=== PATIENT | female | born 1960 | race Caucasian/White ===

== ENCOUNTER → 2016-07-14 | Outpatient (CLI) | payer BC ==
[2016-07-14 08:44] LABS: BASOPHILS # (AUTO) 0.06 10*3/UL; BASOPHILS % (AUTO) 0.7 % (0-1); EOSINOPHILS # (AUTO) 0.39 10*3/UL; EOSINOPHILS % (AUTO) 4.3 % (0-8); HEMATOCRIT 43.2 % (37.0-47.0); HEMOGLOBIN 14.2 g/dL (12.0-16.0); LYMPHOCYTES # (AUTO) 0.99 10*3/uL; MEAN CORPUSCULAR HEMOGLOBIN 32.1 PG (27-31); MEAN CORPUSCULAR HGB CONC 32.9 g/dL (33-37); MEAN CORPUSCULAR VOLUME 97.7 FL (81-99); MEAN PLATELET VOLUME 8.5 FL (7.4-12.2); MONOCYTES # (AUTO) 0.45 10*3/UL (0.3-0.8); MONOCYTES % (AUTO) 4.9 % (5-15); NEUTROPHILS # (AUTO) 7.24 10*3/UL; NEUTROPHILS % (AUTO) 79.1 % (50-80); RED BLOOD COUNT 4.42 10^6/uL (4.20-5.40)
[2016-07-14 09:13] LABS: PLATELET MORPHOLOGY COMMENT NORMAL MORPHOLOGY (NORM); RBC MORPHOLOGY COMMENT NORMAL MORPHOLOGY (NORM); WBC MORPHOLOGY COMMENT NORMAL MORPHOLOGY (NORM)
[2016-07-14 09:42] LABS: CALCIUM 9.9 mg/dL (8.7-10.7); CHOL/HDL RATIO 3.63 RATIO (0-4.0); LDL CHOLESTEROL,CALCULATED 92.2 mg/dL
== END ==
LOC: LAB 08:23
PROVIDERS: ATTEND Internal Medicine
DX: E03.9 Hypothyroidism, unspecified (principal); E78.5 Hyperlipidemia, unspecified; F31.9 Bipolar disorder, unspecified
CPT/HCPCS: 36415; 80053; 80061; 80178; 84443; 85025

== ENCOUNTER → 2016-09-02 | Outpatient (CLI) | payer BC ==
--- NOTE | 2016-09-02 09:42 | DI ---
LIMITED LEFT LOWER QUADRANT ABDOMINAL ULTRASOUND, 09/02/2016 8:27 AM: Clinical History: Left lower quadrant mass. Previous Exam: None at this facility. Technique: Scans are performed through the right upper quadrant in multiple projections. Color Dopple r ultrasound is also performed. There is a softball size palpable mass in the left lower quadrant. Scans performed a rectal over this area show a well-circumscribed volume of tissue in the subcutaneous fat. This tissue consists of fat ty tissue and bowel and is consistent with a hernia. There may be a small amount of free fluid as wel l. A CT scan with IV contrast of the abdomen and pelvis is recommended while the patient was performi ng a "sit up" maneuver and the Valsalva maneuver. Reading: The palpable mass is felt to represent a hernia arising from the right lower quadrant abdominal wall. Followup with a CT scan with IV contrast of the abdomen and pelvis is recommended when the patient p erforms the Valsalva and a "sit up" maneuver.
[2016-09-02 16:04] LABS: CALCIUM 9.6 mg/dL (8.7-10.7)
== END ==
LOC: LAB 08:24 → US 08:24
PROVIDERS: ATTEND Physician Assistant
DX: R19.04 Left lower quadrant abdominal swelling, mass and lump (principal)
CPT/HCPCS: 36415; 76705; 80048

== ENCOUNTER → 2016-09-03 | Outpatient (CLI) | payer BC ==
--- NOTE | 2016-09-04 12:13 | DI ---
CT ABDOMEN SCAN WITH IV CONTRAST, 09/03/2016 9:15 AM : Clinical History: Left lower quadrant mass. Previous Exam: 09/16/2011. Scans are performed from the lower lung bases through the liver and kidneys with IV contrast. 50 ml o f Isovue 300 was injected IV. No oral or rectal contrast was ordered. The lung bases are clear. The liver size is normal and there is diffuse mild fatty infiltration. The patient is status post cholecystectomy and the common bile duct measures about 2-3 mm in diameter. Th e adrenal glands and the pancreas are normal. There is mild splenomegaly. Both kidneys are normal in size, shape, position and contour. There is no hydronephrosis or hydroureter. No renal or ureteral ca lculi are present. There are no abnormal retrocrural or periaortic nodes. No ascites is present. READING: Normal size liver with mild fatty infiltration. Mild splenomegaly. CT PELVIS SCAN WITH IV CONTRAST, 09/03/2016 9:15 AM: Clinical History: See above. Previous Exam: None at this facility. Scans are performed from just superior to the umbilicus to the symphysis pubis with IV contrast. This is the same bolus of contrast used for the CT scans of the abdomen. Scans through the lower abdomen and pelvis show no masses or abnormal fluid collections. There is no adenopathy. The appendix is not visualized with certainty but there is no inflammatory mass either in the cecal tip or in the right lower quadrant. The small bowel, terminal ileum, and ileocecal valve a re normal. The colon is normal although there is a left lower quadrant hernia through which the dista l descending colon and sigmoid colon have herniated along with mesenteric fat into the redundant subc utaneous fat. There is no evidence of obstruction. The hernia defect is lateral to the rectus abdomin is muscle and anterior to the left iliopsoas muscle. It measures approximately 4-5 cm in diameter and has not increased in caliber since the previous exam. The patient is status post hysterectomy. Both ovaries are atrophic but normal. READIN. There is a hernia defect lateral to the left rectus abdominis muscle and anterior to the left mera opsoas muscle measuring approximately 4 x 5 cm in diameter through which large bowel and mesenteric f at has herniated. There is no evidence of an obstruction. The herniated mesenteric fat and bowel repr esent the mass noted in the left lower quadrant. 2. The remainder of the exam is normal.
== END ==
LOC: CT 09:00
PROVIDERS: ATTEND Physician Assistant
DX: R19.04 Left lower quadrant abdominal swelling, mass and lump (principal); K76.0 Fatty (change of) liver, not elsewhere classified; R16.1 Splenomegaly, not elsewhere classified
CPT/HCPCS: 74177